=== PATIENT | female | born 1995 | race Hispanic/Latino ===

== ENCOUNTER 2019-03-03 22:34 | Emergency (ER) | payer BC ==
[2019-03-03] MEDS ORDERED: KETOROLAC TROMETHAMINE 60 MG/2 ML VIAL ONE (23:06)
[2019-03-03] MEDS ORDERED: CYCLOBENZAPRINE HCL 10 MG TABLET ONE (23:07)
== END 2019-03-03 23:49 | disposition home or self-care (01) ==
LOC: EDH 22:34
DX: S33.5XXA Sprain of ligaments of lumbar spine, initial encounter (principal); V89.2XXA Person injured in unspecified motor-vehicle accident, traffic, initial encounter; Y93.89 Activity, other specified; Y92.410 Unspecified street and highway as the place of occurrence of the external cause; Y99.8 Other external cause status
CPT/HCPCS: 96372; 99284; J1885